=== PATIENT | female | born 1990 | race Caucasian/White ===

== ENCOUNTER 2023-12-13 12:17 | Outpatient (CLI) | payer OTHER, SELFPAY ==
[2023-12-13 12:45] LABS: Ur HCG Qualitative* Negative (Negative)
== END 2023-12-13 12:18 | disposition home or self-care (01) ==
PROVIDERS: PCP Family Medicine
DX: C50.911 Malignant neoplasm of unspecified site of right female breast (principal)
CPT/HCPCS: 36415; 81025; 84702